=== PATIENT | female | born 1985 | race Caucasian/White ===

== ENCOUNTER 2024-05-29 20:34 | Emergency (ER) | payer MEDICAID ==
[~2024-05-29] VITALS: Ht 157.5 cm; Wt 97.7 kg
[2024-05-29 20:36] VITALS: BP 133/67; PULSE 104; TEMP 97.9; O2SAT 100
[2024-05-29] MEDS ORDERED: HYDR-3965 PO (21:17)
[2024-05-29] MEDS: HYDROcodone/acetaminophen 5mg/325mg tablet PO ONE (21:25)
[2024-05-29 23:41] VITALS: RESP 16
== END 2024-05-29 23:44 | disposition home or self-care (01) ==
LOC: ER 20:34
DX: S82.62XA Displaced fracture of lateral malleolus of left fibula, initial encounter for closed fracture (principal); G90.A Postural orthostatic tachycardia syndrome [POTS]; Z79.899 Other long term (current) drug therapy; X58.XXXA Exposure to other specified factors, initial encounter; Y93.89 Activity, other specified; Y92.89 Other specified places as the place of occurrence of the external cause; Y99.8 Other external cause status
CPT/HCPCS: 73610; 99283